=== PATIENT | male | born 1980 | race Caucasian/White ===

== ENCOUNTER 2017-10-03 10:51 | Emergency (ER) | payer OTHER ==
[~2017-10-03] VITALS: Ht 180.3 cm; Wt 69.9 kg
[~2017-10-03 10:51] MED LIST: FLEXERIL5 MG PO; HYDROCODONE BIT1 T11 PO; MEDROL DOSEPAK4 MG PO; MOTRIN800 MG PO; NKHM
[2017-10-03] MEDS ORDERED: NAPROSYN500 MG PO (11:04)
[2017-10-03] MEDS ORDERED: ZOFRAN4 MG PO (11:04)
[2017-10-03] MEDS ORDERED: Peridex 473 ML473 ML PO (11:04)
[2017-10-03] MEDS ORDERED: PENICILLIN VK500 MG PO (11:04)
== END 2017-10-03 11:08 | disposition home or self-care (01) ==
LOC: ED 10:51
DX: K02.9 Dental caries, unspecified (principal); R03.0 Elevated blood-pressure reading, without diagnosis of hypertension; F17.200 Nicotine dependence, unspecified, uncomplicated

== ENCOUNTER 2018-01-07 13:32 | Emergency (ER) | payer OTHER ==
[~2018-01-07] VITALS: Ht 180.3 cm; Wt 66.7 kg
[~2018-01-07 13:32] MED LIST changes: +NAPROSYN500 MG PO; +PENICILLIN VK500 MG PO; +Peridex 473 ML473 ML PO; +ZOFRAN4 MG PO
[2018-01-07] MEDS ORDERED: CYCLOBENZAPRINE5 M3 PO (15:54)
[2018-01-07] MEDS ORDERED: MEDROL DOSEPAK4 MG PO (15:54)
[2018-01-07] MEDS ORDERED: NAPROSYN500 MG PO (15:54)
== END 2018-01-07 15:59 | disposition home or self-care (01) ==
LOC: ED 13:32
DX: M54.5 Low back pain (principal); Z79.899 Other long term (current) drug therapy; X50.9XXA Other and unspecified overexertion or strenuous movements or postures, initial encounter; Y93.89 Activity, other specified; Y92.89 Other specified places as the place of occurrence of the external cause; Y99.9 Unspecified external cause status

== ENCOUNTER 2018-10-15 09:42 | Emergency (ER) | payer BC ==
[~2018-10-15] VITALS: Ht 180.3 cm; Wt 74.8 kg
[~2018-10-15 09:42] MED LIST changes: +CYCLOBENZAPRINE5 M3 PO
[2018-10-15] MEDS ORDERED: PREDNISONE10 MG PO (09:56)
[2018-10-15] MEDS ORDERED: FLONASE ALLERG9.9 ML NAS (09:56)
[2018-10-15] MEDS ORDERED: MUCINEX DM 30/61 TAB PO (09:56)
[2018-10-15] MEDS ORDERED: CLARITIN10 MG PO (09:56)
[2019-01-05] MEDS ORDERED: IBUPROFEN600 MG PO (14:12)
[2019-01-05] MEDS ORDERED: ROBAXIN500 M1 PO (14:12)
== END 2018-10-15 10:30 | disposition home or self-care (01) ==
LOC: ED 09:42
DX: B34.9 Viral infection, unspecified (principal); F17.200 Nicotine dependence, unspecified, uncomplicated

== ENCOUNTER 2019-05-03 19:30 | Emergency (ER) | payer OTHER ==
[~2019-05-03] VITALS: Ht 180.3 cm; Wt 78.0 kg
[~2019-05-03 19:30] MED LIST changes: +CLARITIN10 MG PO; +FLONASE ALLERG9.9 ML NAS; +IBUPROFEN600 MG PO; +MUCINEX DM 30/61 TAB PO; +PREDNISONE10 MG PO; +ROBAXIN500 M1 PO
[2019-05-03] MEDS ORDERED: CYCLOBENZAPRINE10 MG PO (21:50)
== END 2019-05-03 21:51 | disposition home or self-care (01) ==
LOC: ED 19:30
DX: S29.012A Strain of muscle and tendon of back wall of thorax, initial encounter (principal); X58.XXXA Exposure to other specified factors, initial encounter; Y93.89 Activity, other specified; Y92.89 Other specified places as the place of occurrence of the external cause; Y99.8 Other external cause status

== ENCOUNTER 2020-01-02 12:10 | Emergency (ER) | payer OTHER ==
[~2020-01-02] VITALS: Ht 154.9 cm; Wt 73.5 kg
[~2020-01-02 12:10] MED LIST changes: +CYCLOBENZAPRINE10 MG PO
[2020-01-02] MEDS ORDERED: NAPROSYN500 MG PO (12:35)
[2020-01-02] MEDS ORDERED: TYLENOL325 M1 PO (12:35)
[2020-01-02] MEDS ORDERED: CYCLOBENZAPRINE10 MG PO (12:35)
== END 2020-01-02 15:00 | disposition home or self-care (01) ==
LOC: ED 12:10
DX: M54.5 Low back pain (principal); F17.200 Nicotine dependence, unspecified, uncomplicated; Z79.899 Other long term (current) drug therapy

== ENCOUNTER 2020-04-03 21:11 | Emergency (ER) | payer OTHER ==
[~2020-04-03] VITALS: Wt 73.5 kg
[~2020-04-03 21:11] MED LIST changes: +TYLENOL325 M1 PO
== END 2020-04-04 01:14 | disposition home or self-care (01) ==
LOC: ED 21:11
DX: S63.602A Unspecified sprain of left thumb, initial encounter (principal); F17.200 Nicotine dependence, unspecified, uncomplicated; W01.0XXA Fall on same level from slipping, tripping and stumbling without subsequent striking against object, initial encounter; Y93.89 Activity, other specified; Y92.89 Other specified places as the place of occurrence of the external cause; Y99.8 Other external cause status

== ENCOUNTER 2022-03-04 13:46 | Emergency (ER) | payer OTHER ==
[~2022-03-04] VITALS: Wt 73.5 kg
== END 2022-03-04 15:06 | disposition left against medical advice (07) ==
LOC: ED 13:46
DX: S69.81XA Other specified injuries of right wrist, hand and finger(s), initial encounter (principal); Z53.21 Procedure and treatment not carried out due to patient leaving prior to being seen by health care provider; W18.30XA Fall on same level, unspecified, initial encounter; Y93.89 Activity, other specified; Y92.89 Other specified places as the place of occurrence of the external cause; Y99.9 Unspecified external cause status

== ENCOUNTER 2023-01-14 17:49 | Emergency (ER) | payer OTHER ==
[~2023-01-14] VITALS: Ht 182.8 cm; Wt 72.6 kg
== END 2023-01-14 18:35 | disposition home or self-care (01) ==
LOC: ED 17:49
DX: S93.401A Sprain of unspecified ligament of right ankle, initial encounter (principal); W18.40XA Slipping, tripping and stumbling without falling, unspecified, initial encounter; Y93.89 Activity, other specified; Y92.89 Other specified places as the place of occurrence of the external cause; Y99.8 Other external cause status

== ENCOUNTER 2023-09-14 09:09 | Emergency (ER) | payer OTHER ==
[~2023-09-14] VITALS: Ht 180.3 cm; Wt 67.1 kg
[2023-09-14] MEDS ORDERED: ONDANSETRON4 MG SL (09:42)
== END 2023-09-14 09:47 | disposition home or self-care (01) ==
LOC: ED 09:09
DX: B34.9 Viral infection, unspecified (principal); R19.7 Diarrhea, unspecified; R11.2 Nausea with vomiting, unspecified

== ENCOUNTER 2024-06-01 05:22 | Emergency (ER) | payer OTHER ==
[~2024-06-01] VITALS: Ht 180.3 cm; Wt 66.7 kg
[~2024-06-01 05:22] MED LIST changes: +ONDANSETRON4 MG SL
[2024-06-01] MEDS ORDERED: NAPROXEN250 MG PO (06:03)
[2024-06-01] MEDS ORDERED: Ketorolac Tromethamine 60 MG/2 ML VIAL IM ONE (06:05)
[2024-06-01] MEDS ORDERED: Bacitracin Zinc 14 GM TUBE T ONE (06:50)
== END 2024-06-01 06:20 | disposition home or self-care (01) ==
LOC: ED 05:22
DX: S93.401A Sprain of unspecified ligament of right ankle, initial encounter (principal); S93.691A Other sprain of right foot, initial encounter; X50.1XXA Overexertion from prolonged static or awkward postures, initial encounter; Y93.89 Activity, other specified; Y92.009 Unspecified place in unspecified non-institutional (private) residence as the place of occurrence of the external cause; Y99.8 Other external cause status